=== PATIENT | female | born 1985 | race Caucasian/White ===

== ENCOUNTER 2022-01-31 18:15 | Emergency (ER) | payer OTHER, SELFPAY ==
--- NOTE | ~2022-01-31 | XR_ITS ---
EXAMINATION: XR chest 2V Exam Date/Time: 01/31/2022 18:42 CDT CLINICAL HISTORY: cough for 4 days Comparison: None available. RESULT: Lines, tubes, and devices: None. Lungs and pleura: Clear. Cardiomediastinal silhouette: Normal cardiomediastinal silhouette. Other: No acute osseous or upper abdominal finding. IMPRESSION: No acute cardiopulmonary process Reviewed, dictated and finalized at location K.
[2022-01-31 18:31] VITALS: BP 139/99; PULSE 124; RESP 18; TEMP 36.2; O2SAT 100
--- NOTE | 2022-01-31 18:45 | ED.GENADULT ---
HPI - General Adult General Chief complaint: Upper Respiratory Infection Stated complaint: cough,swollen tonsils Source: patient Mode of arrival: ambulatory Limitations: no limitations History of Present Illness HPI narrative: Patient presents for evaluation of respiratory symptoms. On Wednesday of this week she felt a strange sensation in her nose. Two days later she developed a productive cough of green/yellow sputum. She then felt like her tonsils were irritated . She denies any fever, chills, chest pain, shortness of breath, nausea, vomiting, diarrhea. No recent sick contacts to her knowledge. She does not smoke. No hx of COVID. She has received COVID vaccination. She tried taking Delsym and tussin DM without considerable improvement in her symptoms. No recent surgeries. No leg swelling. No personal hx of DVT or PE. She is not on exogenous estrogen. No additional complaints or concerns. Related Data Allergies Allergy/AdvReac Type Severity Reaction Status Date / Time PCN Allergy Mild RASH Uncoded 01/31/22 18:45 Review of Systems Review of Systems: CONSTITUTIONAL: Denies fever, chills, or sweats. EYES: Denies visual changes, redness, or discharge. ENT: Denies rhinorrhea, congestion, sore throat, or otalgia. CARDIOVASCULAR: Denies chest pain, palpitations, or edema. RESPIRATORY: Denies cough or dyspnea. GASTROINTESTINAL: Denies abdominal pain, nausea, vomiting, or diarrhea. GENITOURINARY: Denies dysuria or hematuria. SKIN: Denies rash or itching. MUSCULOSKELETAL: Denies back pain, joint pain, or myalgia. NEUROLOGIC: Denies headache, numbness, dizziness, or weakness. PSYCHIATRIC: Denies anxiety or depression. [facility] Past Medical History Medical History (Updated 01/31/22 @ 19:12 by GREGORY Pryor, ) No pertinent past medical history Surgical History Surgical History H/O elbow surgery Family History Family History Mother Family history non-contributory Social History Social History Smoking status: Never smoker Substance use: never Living arrangements: with family Gender identity (if verbalized by the patient): Female Sexual Orientation (if Verbalized by the Patient): Straight or Heterosexual Spiritual care concerns: No Exam Narrative: GENERAL: Well-appearing, well-nourished, and in no acute distress. HEAD: Normocephalic, atraumatic. EYES: PERRLA and EOMI. ENT: Nares clear, no rhinorrhea or epistaxis. Mucous membranes moist. Bilateral tonsillar enlargement and erythema. No exudate. Uvula is midline. Bilateral TMs pearly johnson nonbulging NECK: Supple. No adenopathy or masses. No carotid bruits or JVD CHEST: Cough present on exam. Clear to auscultation. No respiratory distress. No wheezes rales or rhonchi HEART: Regular rate and rhythm. No murmur heard. Normal peripheral pulses. ABDOMEN: Soft, nontender, nondistended, normal active bowel sounds. EXTREMITIES: Normal range of motion. No edema. SKIN: Warm, dry, no rash. NEURO: No focal deficits. Alert and oriented x3. PSYCH: Normal mood and affect. Course Course Emergency Course: This is a 36-year-old female who presented with complaints of sore throat and cough. Influenza was negative. Strep negative. COVID-negative. Chest x-ray negative. She does have evidence of tonsillitis. She is allergic to amoxicillin/penicillin. We will treat with azithromycin. I did offer to send her to the ER due to tachycardia, but she declined. Think this is reasonable. Her tachycardia seems to be secondary to frequent cough. Doubt PE due to presence of mucopurulent discharge from nares and in expectorant. She was advised to follow up outpatient for further evaluation and treatment and return for worsening symptoms. Pt in agreement with plan of care. Level of Care: Expres
[2022-01-31 19:13] VITALS: PULSE 120
== END 2022-01-31 19:18 | disposition home or self-care (01) ==
PROVIDERS: Emergency Provider Nurse Practitioner
DX: R05.9 Cough, unspecified (principal); J02.9 Acute pharyngitis, unspecified; Z20.822 Contact with and (suspected) exposure to COVID-19
CPT/HCPCS: 71046; 87081; 87426; 87804; 87880; 99213; C9803; G0463